=== PATIENT | male | born 1965 | race Caucasian/White ===

== ENCOUNTER 2017-08-27 12:34 | Emergency (ER) | payer MEDICARE, MEDICAID | END 2017-08-27 14:22 | disposition home or self-care (01) | LOC: ERS 12:34 | DX: M25.512 Pain in left shoulder (principal); L98.9 Disorder of the skin and subcutaneous tissue, unspecified; R21 Rash and other nonspecific skin eruption; F17.210 Nicotine dependence, cigarettes, uncomplicated | CPT/HCPCS: 99283 ==

== ENCOUNTER 2017-09-18 14:35 | Outpatient (CLI) | payer MEDICARE, MEDICAID, OTHER ==
--- NOTE | 2017-09-18 16:01 | RAD ---
LEFT SHOULDER THREE VIEWS: 09/18/17 HISTORY: Pain. FINDINGS: There is mild left AC joint degenerative change. There is no widening of the AC or CC interspace. No displaced fracture or dislocation. IMPRESSION: No acute osseous abnormality. POS: APARNA
== END 2017-09-18 14:36 | disposition home or self-care (01) ==
LOC: RAD-FRANK 14:35
PROVIDERS: ATTEND Nurse Practitioner Family
DX: M25.512 Pain in left shoulder (principal)

== ENCOUNTER 2020-04-05 15:11 | Emergency (ER) | payer MEDICARE, MEDICAID ==
[2020-04-05 15:41] LABS: #Basophils 0.1 thou/uL (0.0-0.2); #Eosinphils 0.1 thou/uL (0.0-0.7); #Lymphocytes 3.1 thou/uL (1.20-3.40); #Monocytes 0.5 thou/uL (0.11-0.59); #Neutrophils 2.5 thou/uL (1.40-6.50); %Basophils 1.6 % (0.0-1.0); %Eosinophils 0.9 % (0.0-10.0); %Lymphocytes 49.4 % (21.0-51.0); %Monocytes 7.6 % (0.0-10.0); %Neutrophils 40.4 % (42.0-75.0); Hemoglobin 16.6 g/dL (14.0-18.0); Mean Corpuscular HGB CONC 35.8 g/dL (32.0-36.0); Mean Corpuscular Hemoglobin 37.3 pg (27.0-31.0); Mean Platelet Volume 7.1 fL (7.4-10.4); Platelet Count 265 thou/uL (130-400); RBC Distribution Width 12.4 % (11.5-14.5); Red Blood Cell (RBC) Count 4.44 mill/uL (4.70-6.10); White Blood Cell (WBC) Count 6.2 thou/uL (4.8-10.8)
--- NOTE | 2020-04-05 15:51 | RAD ---
Chest one view HISTORY: Chest pain. Arm numbness. FINDINGS: Cardiac silhouette and pulmonary vasculature are unremarkable. Mediastinum is midline. Lungs are well-inflated. No lobar consolidation or evidence of pneumothorax. IMPRESSION : No abnormalities are demonstrated.
--- NOTE | 2020-04-05 15:52 | RAD ---
Left shoulder 3 views HISTORY: Injury. FINDINGS: Acromioclavicular and glenohumeral alignment are maintained with very mild osteophytosis an d joint space narrowing.. No acute fracture, dislocation, or aggressive osseous erosions. IMPRESSION : Mild degenerative changes. No acute osseous abnormalities are demonstrated.
[2020-04-05 15:58] LABS: ALT (SGPT) 16 U/L (8-55); AST (SGOT) 45 U/L (5-34); Albumin 3.9 g/dL (3.5-5.0); Alkaline Phosphatase 79 U/L (40-110); Anion Gap 22 mmol/L (10-20); BUN (Urea Nitrogen) 15 mg/dL (8.4-25.7); Bilirubin, Total 0.4 mg/dL (0.2-1.2); Calc. Creatinine Clearance 0 mL/min (70-130); Calcium 8.9 mg/dL (7.8-10.44); Carbon Dioxide 21 mmol/L (22-29); Chloride 103 mmol/L (98-107); Estimated GFR-MDRD Greater than 90; Globulin 3.1 g/dL (2.4-3.5); Glucose 73 mg/dL (70-105); Potassium 3.8 mmol/L (3.5-5.1); Sodium 142 mmol/L (136-145)
== END 2020-04-05 17:57 | disposition left against medical advice (07) ==
LOC: ERS 15:11
DX: R07.89 Other chest pain (principal); F17.210 Nicotine dependence, cigarettes, uncomplicated
CPT/HCPCS: 36415; 71045; 80053; 84484; 85025; 93005

== ENCOUNTER 2020-06-02 09:56 | Outpatient (CLI) | payer MEDICARE, MEDICAID ==
--- NOTE | 2020-06-02 11:43 | RAD ---
LEFT SHOULDER 3 VIEWS: Date: 06/02/2020 HISTORY: Shoulder pain. FINDINGS: There is some mild arthrosis of the AC joint. Glenohumeral joint spaces appears unremarkable. No frac tures. IMPRESSION: Mild arthritic changes of the shoulder. Stable exam as compared to the 04/05/2020 study. POS: LEANDRO
== END 2020-06-02 09:57 | disposition home or self-care (01) ==
LOC: RAD-FRANK 09:56
PROVIDERS: ATTEND Nurse Practitioner Family
DX: M25.512 Pain in left shoulder (principal); M19.012 Primary osteoarthritis, left shoulder

== ENCOUNTER 2022-08-07 10:14 | Outpatient (CLI) | payer MEDICARE, MEDICAID | END 2022-08-07 10:15 | disposition home or self-care (01) | LOC: RAD-FRANK 10:14 | PROVIDERS: ATTEND Nurse Practitioner Family | DX: M25.511 Pain in right shoulder (principal) ==